=== PATIENT | male | born 1980 | race Caucasian/White ===

== ENCOUNTER 2017-07-17 14:45 | Emergency (ER) | payer OTHER ==
[~2017-07-17] VITALS: Ht 177.8 cm; Wt 80.7 kg
[2017-07-17] MEDS: LIDOCAINE HCL/PF 1% 30 ML VIAL IM ONE (15:37)
--- NOTE | 2017-07-17 15:49 | NUR ---
CALLED DR Correia, HE ISNT AVAILABLE. HIS ACQUISITIONS ANALYST DAVIDE CASTILLO WAS PAGED.
[2017-07-17] MEDS ORDERED: IBUPROFEN 600 MG TABLET PO ONE (16:10)
[2017-07-17] MEDS ORDERED: LEVOFLOXACIN (500MG) 500 MG TABLET ONE (16:10)
[2017-07-17] MEDS: IBUPROFEN 600 MG TABLET PO ONE (16:11)
[2017-07-17] MEDS: LEVOFLOXACIN (500MG) 500 MG TABLET PO ONE (16:11)
--- NOTE | 2017-07-17 16:52 | NUR ---
DR Correia CALLED BACK ON THE PHONE WITH DAVIDE RENTERIA
--- NOTE | 2017-07-17 17:35 | NUR ---
Patient does not wish to proceed with medical care recommended by Travis FLORES and Evelyne Head MD. Patient given information related to possible complications, up to and including , which could occur as a result of leaving the hospital at this time. Patient verbalizes understanding of risks involved due to leaving against medical advice. Patient has signed AMA form.
[2017-07-17 17:55] VITALS: BP 143/108
== END 2017-07-17 17:55 | disposition home or self-care (01) ==
LOC: ER 14:47
DX: S00.431A Contusion of right ear, initial encounter (principal); J45.909 Unspecified asthma, uncomplicated; X58.XXXA Exposure to other specified factors, initial encounter; Y93.89 Activity, other specified; Y92.89 Other specified places as the place of occurrence of the external cause; Y99.8 Other external cause status
CPT/HCPCS: A4606; A6403; Z7610

== ENCOUNTER 2021-08-28 23:56 | Emergency (ER) | payer OTHER ==
[~2021-08-28] VITALS: Ht 177.8 cm; Wt 82.6 kg
--- NOTE | 2021-08-29 00:04 | NUR ---
BS 134; DR JUANY STEIN AWARE
--- NOTE | 2021-08-29 00:11 | NUR ---
PATIENT BIBRA 77 C/O OD ON GBH/MEHT FOUND IN [place]. PATIENT A/O TO TOUCH, RR EVEN, NO SOB NOTED. PATIENT TAKEN TO ER BED 01. PATIENT CONNECTED TO CARDIAC AND POX MONITOR.
--- NOTE | 2021-08-29 00:12 | NUR ---
PER EMS LENDING ACTIVITIES SUPERVISOR NARCAN 8MG ADMINISTERED. LAC #18G INTACT.
[2021-08-29 00:25] LABS: BASOPHILS % (AUTO) 0.4 % (0.0-2.0); BILIRUBIN,URINE NEGATIVE (NEGATIVE); COLOR,URINE YELLOW (YELLOW); EOSINOPHILS % (AUTO) 5.7 % (0.0-6.0); HEMATOCRIT 37 % (39-51); HEMOGLOBIN 12.2 g/dL (13.5-17.5); LEUKOCYTE ESTERASE ,URINE NEGATIVE (NEGATIVE); LYMPHOCYTES # (AUTO) 1.1 K/uL (0.8-4.8); LYMPHOCYTES % (AUTO) 13.1 % (20.0-44.0); MEAN CORPUSCULAR HGB CONC 33 g/dl (31.0-36.0); MEAN CORPUSCULAR VOLUME 83 fL (80-96); MONOCYTES # (AUTO) 0.5 K/uL (0.1-1.30); MONOCYTES % (AUTO) 6.4 % (2.0-12.0); NEUTROPHILS # (AUTO) 6.1 K/uL (1.8-8.9); NEUTROPHILS % (AUTO) 74.4 % (43.0-81.0); NITRITE, URINE NEGATIVE (NEGATIVE); PLATELET COUNT (AUTO) 371 K/uL (150-450); PROTEIN,URINE NEGATIVE (NEGATIVE); RED BLOOD CELL COUNT(AUTO) 4.46 MIL/uL (4.5-6.0); UGLUCOSE NEGATIVE (NEGATIVE); WHITE BLOOD COUNT (AUTO) 8.2 K/uL (4.3-11.0)
--- NOTE | 2021-08-29 00:27 | NUR ---
PT BEING TRANSPORTED TO CT SCAN VIA [facility]
[2021-08-29] MEDS ORDERED: IV NS 0.9% 500 ML BAG IV ONE (00:30)
[2021-08-29 00:37] LABS: CALCIUM, SERUM 8.8 mg/dL (8.5-10.1); CARBON DIOXIDE 27 mmol/L (21-32); CHLORIDE 105 mmol/L (98-107); GLUCOSE 134 mg/dL (74-106); POTASSIUM 3.4 mmol/L (3.5-5.1); SODIUM SERUM 143 mmol/L (136-145); UREA NITROGEN, BLOOD 13 mg/dL (7-18)
[2021-08-29 00:40] LABS: ALANINE AMINOTRANSFERASE 36 U/L (12-78); ALBUMIN 3.9 g/dL (3.4-5.0); ALCOHOL, BLOOD < 3 mg/dL (0-0); ALKALINE PHOSPHATASE 119 U/L (46-116); ASPARTATE AMINOTRANSFERASE 30 U/L (15-37); BILIRUBIN,DIRECT 0.1 mg/dL (0.0-0.2); BILIRUBIN,TOTAL 0.2 mg/dL (0.2-1.0)
[2021-08-29 00:42] LABS: ACETAMINOPHEN < 2 ug/ml (10-30)
--- NOTE | 2021-08-29 00:44 | NUR ---
pt returned from ct scan
[2021-08-29 00:58] LABS: BACTERIA,URINE Few /HPF (None Seen); SQUAMOUS EPITHELIAL CELL,UR Few /HPF (None Seen)
[2021-08-29 00:59] LABS: CALCIUM OXALATE CRYSTALS,UR Few /HPF (None Seen); MUCUS,URINE Few /LPF (None Seen)
--- NOTE | 2021-08-29 01:56 | NUR ---
RECTAL TEMP 93.8; DR. JUANY STEIN AWARE. PT AWAKE TOLERATING R/A WELL AT 98%. WARMING MEASURES CONTINUED.
--- NOTE | 2021-08-29 03:05 | NUR ---
PT AWAKE AND ALERT X4 AMBULATORY WITH STEADY GAIT. BREATHING EVEN AND UNLABORED 99% ROOM AIR ALL V/S STABLE. MADE AWARE.
--- NOTE | 2021-08-29 03:06 | NUR ---
FRIEND LUCIANA [phone]
--- NOTE | 2021-08-29 03:32 | NUR ---
Patient discharged to home in stable condition. Written and verbal after care instructions given. Patient verbalizes understanding of instruction. IV line removed and patient ambulatory with steady gait.
[2021-08-29 03:35] VITALS: BP 154/110
== END 2021-08-29 03:36 | disposition home or self-care (01) ==
LOC: ER 08-29
DX: T41.291A Poisoning by other general anesthetics, accidental (unintentional), initial encounter (principal); R41.82 Altered mental status, unspecified; J45.909 Unspecified asthma, uncomplicated
CPT/HCPCS: 36415; 70450; 72125; 80048; 80076; 80143; 80307; 80320; 81001; 82962; 85025; 93005; 96360; 99285; J7040; G0480

== ENCOUNTER 2024-06-15 16:38 | Emergency (ER) | payer MEDICAID, OTHER ==
[~2024-06-15] VITALS: Ht 177.8 cm; Wt 80.3 kg
[2024-06-15 16:41] VITALS: BP 157/94; TEMP 98.3
[2024-06-15] MEDS ORDERED: AMOX500T2 PO (17:05)
[2024-06-15] MEDS ORDERED: AMOX/CLAVULANATE 250 MG TABLET ONE (17:09)
[2024-06-15] MEDS ORDERED: IBUPROFEN 400 MG TABLET ONE (17:09)
[2024-06-15] MEDS: AMOXICILLIN TRIHYDRATE 500 MG CAPSULE PO ONE (17:13)
[2024-06-15] MEDS: IBUPROFEN 400 MG TABLET PO ONE (17:14)
[2024-06-15 17:16] VITALS: O2SAT 99
== END 2024-06-15 17:19 | disposition home or self-care (01) ==
LOC: ER 16:41
DX: H66.91 Otitis media, unspecified, right ear (principal); J45.909 Unspecified asthma, uncomplicated